=== PATIENT | male | born 2000 | race African-American/Black ===

== ENCOUNTER 2018-03-07 13:21 | Emergency (ER) | payer SELFPAY ==
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
[2018-03-07 15:35] VITALS: TEMP 98.5
[2018-03-07 15:36] VITALS: BP 128/77; O2SAT 100
== END 2018-03-07 15:16 | disposition home or self-care (01) ==
LOC: ER 13:21
DX: S60.222A Contusion of left hand, initial encounter (principal); V47.5XXA Car driver injured in collision with fixed or stationary object in traffic accident, initial encounter
CPT/HCPCS: 99284